=== PATIENT | female | born 1940 | race Caucasian/White ===

== ENCOUNTER 2017-04-29 17:51 | Observation (INO) | payer MEDICARE ==
[2017-04-29] VITALS (7 sets, daily range): BP systolic 109–132; BP diastolic 35–79; PULSE 57–63; RESP 16–20; O2SAT 97–100
[~2017-04-29] VITALS: Ht 154.9 cm; Wt 54.3 kg
[~2017-04-29 17:51] MED LIST: ASPI-628 PO; ATOR20TA65 PO; DIGO125T73 PO; FERR-83 PO; LISI2.5T PO; METO25TA99 PO; OXYC-302 PO; POTA20TA7 PO; SERT25TA2 PO; SPIR25TA PO; TORS20TA3 PO
--- NOTE | 2017-04-29 18:12 | ED.REPORT ---
HPI-General Illness Date of Service Apr 29, 2017 ED Provider: Santy Bautista MD Pt is a 76 year old female on warfarin with a history of hypertension, CAD, CHF , COPD, ID, coronary artery disease status post multiple stent placements, hypertension, GERD, chronic anemia and pacemaker placement in 11/2016 who presents to the ED complaining of a "pacemaker malfunction". The pt was recently admitted to [facility] and discharged yesterday. Her pacemaker began beeping soon after she returned home and has continued to do so intermittently since. Irrigation of the pacemaker has indicated that it is not transmitting, which the pt believes is due to the fact that she has been in the hospital and not close to her bedside transmitter. During her recent admission, her medication regimen was altered significantly. She was told that she had additional "heart artery blockage" but was "unable to be stented at that time due to comorbidities". In the ED the pt denies chest pain, shortness of breath, lightheadedness, syncope, nausea or vomiting. The pt has a follow up appointment arranged on 05/04/2017. She states that she is completely asymptomatic and feels fine and her only complaint is that her AICD is beeping. Nursing Notes Stated Complaint: DEFIBULATOR BEEPING Chief Complaint: General Complaint Nursing Notes Reviewed: Yes Allergies: Coded Allergies: vancomycin (Verified Allergy, Intermediate, Rash,Itching,, 01/04/15) morphine (Verified Allergy, Unknown, 04/29/17) Penicillins (Verified Adverse Reaction, Mild, pain at injection site, ) pt. has taken penicillin orally without adverse side effects Scheduled Acidophilus/Bulgaricus (Floranex) 1 Each Tablet 1 TABLET PO TID Ascorbic Acid (Vitamin C) 500 Mg Capsule.er 500 MG PO BID Aspirin (Aspir 81) 81 Mg Tablet. 81 MG PO DAILY Atorvastatin Calcium (Atorvastatin Calcium) 20 Mg Tablet 20 MG PO HS Digoxin (Digoxin) 125 Mcg Tablet 125 MCG PO DAILY Ferrous Sulfate (Ferrous Sulfate) 325 Mg Tablet 325 MG PO BID Folic Acid (Folic Acid) 1 Mg Tablet 1 MG PO DAILY Levofloxacin (Levofloxacin) 500 Mg Tablet 500 MG PO DAILY Lisinopril (Lisinopril) 10 Mg Tablet 10 MG PO DAILY Metoprolol Tartrate (Metoprolol Tartrate) 25 Mg Tablet 12.5 MG PO BID Oxymetazoline HCl (Nasal Herald Sinus) 30 Ml Herald 30 ML NS BID Sertraline HCl (Sertraline) 25 Mg Tablet 12.5 MG PO DAILY Torsemide (Torsemide) 20 Mg Tablet 20 MG PO DAILY Warfarin Sodium (Warfarin Sodium) 1 Mg Tablet 1 MG PO DAILY Zinc Sulfate (Zinc Sulfate) 220 Mg Capsule 220 MG PO DAILY Scheduled PRN Ondansetron (Ondansetron) 4 Mg Tablet 4 MG PO TID PRN PRN For Nausea Oxycodone HCl/Acetaminophen (Percocet 7.5-325 mg Tablet) 1 Each Tablet 1 EACH PO Q6 PRN PRN For Pain General Time Seen by MD: 18:08 Chief Complaint Other (Pacemaker malfunction) Hx Obtained From: Patient, Other family... Arrived By: Walk-in Sudden in Onset?: Yes Onset Occurred: 1 day ago Symptom Duration: Since onset Recent Healthcare: Recent doctor visit, Recent hospitalization Similar Sx Previous: No Past Medical History Past Medical History 1. Congestive heart failure. Repeat acute episode superimposed on chronic dysfunction, mixed systolic and diastolic in nature. 2. Mitral regurgitation as above. 3. Morbid obesity. 4. ASCVD, status post multiple stent placements. 5. Hypertension. 6. Depression. 7. GERD. 8. Asthma. 9. Chronic anemia with recent lower GI bleed though with negative endoscopic evaluation. 10. ID Reports: Asthma, COPD, Cancer, Congestive heart failure, Coronary artery disease , GERD, Hypertension Past Surgical History 5 stents Defib Reports: Hysterectomy Reports: AICD Smoking History Light Tobacco Smoker Social History Alcohol Use: "Social" Ambulatory Status Cane Review of Systems pacemaker malfunction Full Review of Systems Constitutional: Reports: Chills, Fever Respiratory: Denies: Non-productive cough, Shortness of breath Cardiovascular: Denies: Chest pain GI: Denies: Abdominal pain, Nausea, Vomiting Musculoskeletal: Denies: Back pain, Neck pain Skin: Denies Rash Neurologic: Denies: Lightheaded, Syncope Complete sys rev & neg: except as marked. Physical Exam Vital Signs Vital Signs Date Time Temp Pulse Resp B/P Pulse Ox O2 Delivery O2 Flow Rate FiO2 04/29/17 20:00 61 16 111/35 98 Room Air 04/29/17 19:30 60 16 125/42 98 Room Air 04/29/17 19:00 59 16 132/63 99 Room Air 04/29/17 18:01 36.7 57 20 130/77 100 Room Air General/Constitutional: Awake, Alert answering questions appropriately Head / Eyes: Atraumatic, Normocephalic, PERRL, EOMI ENT: Atraumatic, Airway patent, Mucous membranes moist Neck: Atraumatic, Supple, Full range of motion Respiratory / Chest: Breath sounds NL, Breath sounds = bilat, No respiratory distress AICD present on the left anterior chest wall, palpable beneath the skin with a well-healed scar Cardiovascular: Heart rate NL, Regular rhythm, Heart sounds NL, No gallop, No murmurs, No rubs Abdomen: Atraumatic, Soft, Non-tender Back: Atraumatic, Full range of motion Upper Extremities Upper Extremity / MS: Full range of motion, Neurologic intact, Vascular intact Lower Extremity / Pelvis / MS: Atraumatic, Full range of motion, No edema Skin: Color NL, No rash, Warm, Dry scattered ecchymosis on the forearms, appears to be resolving Neurologic: Oriented X3, Speech NL, No motor deficits, No sensory deficits Psychiatric: Affect NL, Mood NL Interpretation & Diagnostics Lab Results Interpretation Result Diagram: 04/29/17192704/29/171927 Test 04/29/17 19:28 04/29/17 19:29 White Blood Count 7.1th/mm3 (3.8-10.1) Red Blood Count 3.32mil/mm3 (3.90-5.20) Hemoglobin 10.1g/dL (12.0-15.6) Hematocrit 33.3% (35.0-46.0) Mean Corpuscular Volume 100fL (81-100) Mean Corpuscular Hemoglobin 30.4pg (27.0-35.0) Mean Corpuscular Hemoglobin Concent 30.3% (32.0-37.0) Red Cell Distribution Width 17.3% (12.3-15.4) Platelet Count 164bil/L (150-400) Neutrophils (%) (Auto) 61% (40-74) Lymphocytes (%) (Auto) 19% (14-46) Monocytes (%) (Auto) 17% (4-12) Eosinophils (%) (Auto) 1% (0-5) Basophils (%) (Auto) 0% (0-3) Prothrombin Time 13.6sec (8.1-12.5) Prothromb Time International Ratio 1.26ratio Sodium Level 138mEq/L (134-144) Potassium Level 4.7mEq/L (3.5-5.2) Chloride Level 101mEq/L (97-108) Carbon Dioxide Level 23mmol/L (18-29) Blood Urea Nitrogen 17mg/dL (8-27) Creatinine 0.91mg/dL (0.57-1.00) Estimat Glomerular Filtration Rate 87mL/min (>59) Glucose Level 94mg/dL (60-99) Calcium Level 8.6mg/dL (8.5-10.1) Magnesium Level 1.8mg/dL (1.6-2.6) Total Bilirubin 0.3mg/dL (0.0-1.2) Aspartate Amino Transf (AST/SGOT) 17U/L (0-50) Alanine Aminotransferase (ALT/SGPT) 10U/L (0-32) Alkaline Phosphatase 95U/L (25-165) Troponin T 0.117ug/L (0.0-0.011) Total Protein 6.3g/dL (6.4-8.4) Albumin 2.9g/dL (3.4-5.0) Hold Goins Top Tube Received (Received) ECG Interpretation ECG Interpretation: normal sinus rhythm with a rate of 57 RBBB and LPFB diffuse anterolateral T wave inversions present when compared with prior EKG dated 01/04/2015, T wave inversions present in lateral leads and more pronounced from prior Time: 18:33 Interpreted by: ED physician Re-Eval/Medical Decision Med Decision/Clinical Course Pt is a 76 year old female on warfarin with a history of hypertension, CAD, CHF , COPD, ID, coronary artery disease status post multiple stent placements, hypertension, GERD, chronic anemia and pacemaker placement in 11/2016 who presents to the ED complaining of a "pacemaker malfunction". The pt was recently admitted to [facility] and discharged yesterday. Her pacemaker began beeping soon after she returned home and has continued to do so intermittently since. Irrigation of the pacemaker has indicated that it is not transmitting, which the pt believes is due to the fact that she has been in the hospital and not close to her bedside transmitter. During her recent admission, her medication regimen was altered significantly. She was told that she had additional "heart artery blockage" but was "unable to be stented at that time due to comorbidities". In the ED the pt denies chest pain, shortness of breath, lightheadedness, syncope, nausea or vomiting. The pt has a follow up appointment arranged on 05/04/2017. She states that she is completely asymptomatic and feels fine and her only complaint is that her AICD is beeping. Upon arrival to the emergency department the patient is afebrile stable vital signs and examination as above. EKG was obtained and interpreted by myself as documented above and was notable for new lateral T-wave inversions when compared to prior study. The patient was given 324 mg of aspirin upon arrival. Obtained records from recent hospitalization at [facility]. Stress test obtained on 04/26/2017 demonstrates evidence of old inferior ID and evidence of moderate periinfarction ischemia of lateral wall. In addition, thought to have demand ischemia in light of chronic anemia. Cardiology thought that pt should be medically managed per those notes. Laboratory studies were notable as below: No leukocytosis Hematocrit 33.3 INR 1.26 CMP unremarkable Troponin 0.117 Patient was discussed with cardiology and was initially felt that she could be discharged home with plan to reset her pacemaker in clinic tomorrow. However, given new EKG changes in the setting of elevated troponin. We have opted to admit her for further workup and management. It is unclear whether she had elevated troponins during her recent hospitalization at [facility] as after reviewing many pages of records I see no troponin lab values. She was initially quite resistant to being admitted now after discussing this with her further she was amenable to coming into the hospital for serial troponin testing and further assessment by cardiology. She was transferred in stable condition. Source of Hx: Old records Time of Eval: 20:07 Patient Status: Condition improved Re-Evaluation/Progress Note: Pt rechecked, who is resting. Lab results are discussed. Time of Eval: 21:00 Patient Status: Condition improved Re-Evaluation/Progress Note: Pt rechecked, who is stable. The diagnosis and plan for admission are discussed. The pt understands and agrees with the plan. All questions are addressed at this time. She requests that her Warfarin levels not be altered. Consultation #1: Referral / Consult Name: Brenda Tiwari MD Consulted With: Cardiology Call Returned at: 19:08 Skilled Nursing Case Manager: Agrees with eval, Agrees with plan Note: Spoke with Dr. Tiwari, cardiology, regarding pt's case. Pacemaker interrogation results and pt's presentation today are reviewed. Dr. Tiwari is not concerned about T wave inversions on EKG due to pt being asymptomatic. Follow up in the clinic on Sunday is addressed. Dr. Tiwari does not recommend more workups or admission Consultation #2: Referral / Consult Name: Chao Padron MD Consulted With: Hospitalist Call Returned at: 21:08 Skilled Nursing Case Manager: Agrees with eval, Agrees with plan, Accepts admit Note: Spoke with Dr. Padron, hospitalist, regarding pt's case. Dr. Padron agrees with the evaluation and agrees to admit the pt. Consultation #3: Referral / Consult Name: Brenda Tiwari MD Consulted With: Cardiology Call Returned at: 22:05 Skilled Nursing Case Manager: Agrees with eval, Agrees with plan Note: Updated Dr. Tiwari on plan for pt. Counseled Regarding: Diagnosis, Lab results, Need for admission Discharge & Departure Primary Impression: Elevated troponin Additional Impressions: Pacemaker malfunction Encounter type: initial encounter Qualified Code: T82.111A - Breakdown ( mechanical) of cardiac pulse generator (battery), initial encounter History of ventricular tachycardia History of coronary artery disease History of ID (myocardial infarction) History of heart artery stent Disposition: ADMITTED TO HOSPITAL Discharge Condition All VS Reviewed: Yes Condition: Stable Patient Instructions: Pacemaker (DC) Additional Instructions: Thank you for seeking care at the emergency room. It is difficult for us to make definitive diagnoses in the ED but we believe that you are experiencing an alarm related to your defibrillator shocking you on March 19. I discussed this with your senior director creative services as well as the [employer] pharmaceutical specialty representative. You should go to cardiology clinic first thing on Sunday so that they can restart your pacemaker/defibrillator and stop the alarm. Our primary goal today in the ED was to evaluate you for any life-threatening conditions. Your evaluation was reassuring. You should return to the ED immediately if you develop any new/worsening symptoms, if you are shocked by your defibrillator, if you experience chest pain , shortness of breath fevers, vomiting, cough, lightheadedness, weakness or any other concerning signs or symptoms. Thank you for letting us partake in your care today. Referrals: Brenda Tiwari MD, Caroline PA-C (PCP/Family) Crit Care Except Billable Proc Time Spent: 105-134 minutes Services Performed: Patient management by me, Time spent at bedside, Reviewing test results, Reviewing imaging, Discussing patient care, Documentation in record, Time with fam/surrogate Critical Care Notes: Multiple discussions with cardiology, irrigation of pacemaker, discussion with the [employer], discussions with hospitalist. Scribe Attestation Portions of this note were transcribed by Keyshawn Luis. I, Dr. Bautista personally performed the history, physical exam and medical decision-making; I reviewed and confirmed the accuracy of the information in the transcribed note. copies to: Brenda Tiwari MD; Tammy Zazueta PA-C, Beck O MD Apr 29, 2017 18:12 KEYSHAWN LUIS Apr 29, 2017 19:18
[2017-04-29 19:34] LABS: Mean Corpuscular Hemoglobin 30.4 pg (27.0-35.0); Mean Corpuscular Volume 100 fL (81-100); NEUTROPHILS % (AUTO) 61 % (40-74); Platelet Count 164 bil/L (150-400)
[2017-04-29 19:35] LABS: BASOPHILS % (AUTO) 0 % (0-3); EOSINOPHILS % (AUTO) 1 % (0-5); MONOCYTES % (AUTO) 17 % (4-12)
[2017-04-29] MEDS ORDERED: Ondansetron 2 mg/mL 2 mL Inj IVPUSH PRN ×2 (20:00→21:15)
[2017-04-29] MEDS ORDERED: Alum-Mag Hydrox-Simeth 30 mL Suspension PO PRN ×2 (20:00→21:15)
[2017-04-29 20:08] LABS: Magnesium 1.8 mg/dL (1.6-2.6); TROPONIN T 0.117 ug/L (0.0-0.011)
[2017-04-29] MEDS ORDERED: ACID1TAB16 PO (20:15)
[2017-04-29] MEDS ORDERED: ONDA-53 PO (20:15)
[2017-04-29] MEDS ORDERED: ASCO500C6 PO (20:15)
[2017-04-29] MEDS ORDERED: FOLI1TAB18 PO (20:15)
[2017-04-29] MEDS ORDERED: LEVO500T79 PO (20:15)
[2017-04-29] MEDS ORDERED: OXYM-45 NS (20:15)
[2017-04-29 20:41] LABS: INR 1.26 ratio
--- NOTE | 2017-04-29 21:00 | NUR ---
admit: admit questions complete. med rec completed in ER. pt A&OX3. denies CP/SOB. Tele SR in the 50's. will continue to monitor pt.
[2017-04-29] MEDS ORDERED: Polyethylene Glycol (PEG) 17 Gm Powder PO PRN (21:15)
[2017-04-29] MEDS ORDERED: Senna-Docusate 8.6-50 mg Tablet PO PRN (21:15)
--- NOTE | 2017-04-29 21:22 | PCM.HPMED ---
Subjective Date of Service Apr 29, 2017 Primary Provider: Admitting Physician: Chao Padron MD Primary Care Physician: Kelle Gonzalez MD Attending Physician: Chao Padron MD Chief Complaint: Patient is a 76-year-old female with a medical history significant for hypertension, dyslipidemia, COPD, CAD status post stenting, and CHF with AICD implantation presented to the ED after pacer firing. History of Present Illness: Per patient, she reported AICD firing twice yesterday afternoon and again today while walking without any other associated symptoms including chest pain shortness of breath, lightheadedness, dizziness, syncopal episode, palpitation, or nausea and vomiting at the time. Per recommendation of PCP, patient came to the ED for further evaluation. Patient was just recently discharged from [facility] for supratherapeutic INR, severe anemia, and Afib with RVR after 8 day stay. Pt stabilized, uncertain of bleeding source however. Afib was managed with the addition of digoxin. Per ED note, patient received stress testing on 04/26/2017 while admitted at [facility] which demonstrate old anterior infarct, and recommended the patient be medically manage. On evaluation, patient denies any cardiac symptoms. In the ED, his vitals stable. EKG noted some diffuse ST inversion. Pacemaker was interrogated, however reports has yet been generated. An initial consultation with interlocking tower operator Dr. Karie I suggested the patient be followed up on Sunday. Lab troponin however came back 0.117. Patient is admitted on observation. Review of Systems: A comprehensive review of systems was conducted with the patient and found to be negative except as above in the History of Present Illness. Allergies Coded Allergies: vancomycin (Verified Allergy, Intermediate, Rash,Itching,, 01/04/15) morphine (Verified Allergy, Unknown, 04/29/17) Penicillins (Verified Adverse Reaction, Mild, pain at injection site, ) pt. has taken penicillin orally without adverse side effects Home Medications Per medical reconciliation Vitamin C 500 mg twice a day Aspirin 81 mg daily Atorvastatin 20 mg nightly Digoxin 125 MCG daily Ferrous sulfate 325 mg twice a day Folic acid 1 mg daily Lisinopril 10 mg daily Metoprolol tartrate 12.5 mg twice a day Sertraline 12.5 mg daily Torsemide 20 mg daily Warfarin 1 mg daily Zinc sulfate 220 mg daily PMH HF systolic and diastolic recent echo on 01/13/2016 with EF 30-35% Mitral valve regurgitation Hypertension Depression GERD COPD Chronic anemia with a history of GI bleeding History of myocardial infarction CAD Osteoarthritis History of cervical cancer 1974 Surgical History Dual-chamber AICD 2012 Hysterectomy Multiple drug-eluting stents Family History Father history of CVA Mother had CHF Social History Hx Alcohol Use: No Hx Substance Use: No Hx Tobacco Use: Yes (10/2010) Smoking Status: Light Tobacco Smoker Exam Vital Signs Vital Sign - Last Date Time Temp Pulse Resp B/P Pulse Ox O2 Delivery O2 Flow Rate FiO2 04/29/17 20:00 61 16 111/35 98 Room Air 04/29/17 18:01 36.7 Exam General: No acute distress, appropriately interactive HEENT: Normocephalic, atraumatic. PERRLA, EOMI, Anicteric sclerae, moist conjunctivae. Neck: No JVD, No bruits. No lymphadenopathy or thyromegaly. Cardiovascular: Regular rate and rhythm with no murmurs, rubs, or gallops appreciated Pulmonary: b/l air sound with no crackles, wheezes, or rhonchi. no use of accessory muscles. Abdomen: +Bowel sound, Soft, nontender, nondistended. Extremities: No clubbing or cyanosis, no lymphedema, no b/l lower leg edema Skin: Normal temperature, turgor, and texture; no rash. No visualized skin ulcer. Neurological: CN II-VII grossly intact, moving equally on all 4 extremities Psychiatric: Normal mood and affect. AOx3 Lab and Diagnostics Result Diagram: 04/29/17192704/29/171927 Assessment & Plan Patient is a 76-year-old female with a medical history significant for hypertension, dyslipidemia, COPD, CAD status post stenting, and CHF with AICD implantation came in for evaluation of AICD firing, admitted for elevated troponin, possible NSTEMI Elevated troponin of indeterminate significance -likely 2nd to AICD firing, diffuse T-wave inversion of lateral leads -Stress test obtained on 04/26/2017 at [facility] with old inferior DE, medically managed -Bogdan score 5, concern for NSTEMI -trending troponin -telemetry monitoring -Echo ordered, may consider canceling if trops plateau Paroxysmal Afib -Cont home warfarin and digoxin 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 -EF 30-35% based on echo 01/06/2015, dual-chamber AICD -Cont leeanne-I and beta-clay, patient not on spironolactone based on records -Continue torsemide 20 mg and digoxin -Digoxin level ordered CAD -Continue home Atorvastatin, aspirin COPD -DuoNeb when necessary Hypertension -Continue lisinopril, metoprolol, Normocytic anemia -Continue home for sulfate and folic acid Depression -Continue sertraline CODE STATUS full code DVT prophylaxis warfarin Patient Status: Patient is admitted under observation status with expected length of stay LESS than 2 midnights due to severity of presenting symptoms, risk of adverse event, and complexity of treatment plan. GI Prophylaxis: Not indicated VTE Prophylaxis: Theraputic Anticoag with Warfarin Resuscitation Status: CPR: Attempt Resuscitation Attending Statement The patient was seen and examined together with Dr. Patrick on 04/29 and I agree with the history, exam and plan as outlined in the note above. Rafiq Patrick DO Apr 29, 2017 21:22 Chao Padron MD Apr 30, 2017 01:42
[2017-04-29] MEDS ORDERED: OXYM30SP19 NS (21:25)
[2017-04-29] MEDS ORDERED: LISI10TA PO (21:25)
[2017-04-29] MEDS ORDERED: ZINC220C9 PO (21:25)
[2017-04-29] MEDS ORDERED: METO25TA6 PO (21:25)
[2017-04-29] MEDS ORDERED: WARF1TAB6 PO (21:25)
[2017-04-29] MEDS ORDERED: TORS20TA3 PO (21:25)
[2017-04-29] MEDS ORDERED: SERT25TA6 PO (21:25)
[2017-04-29] MEDS ORDERED: Albuterol-Ipratropium 3 mL Inhalation Solution NEB PRN (22:00)
[2017-04-29] MEDS: 0.9% Sodium Chloride 1,000 ML IV SCH (22:09)
[2017-04-30] VITALS (9 sets, daily range): BP systolic 103–145; BP diastolic 56–86; PULSE 57–63; RESP 16–20; O2SAT 95–99
[2017-04-30] MEDS: Sodium Chloride LOK Flush 10 mL Syringe IVFLUSH SCH ×4 (00:30→20:13)
[2017-04-30 02:29] LABS: APPEARANCE,URINE CLEAR (CLEAR,HAZY); COLOR,URINE YELLOW (YELLOW); OCCULT BLOOD,URINE NEGATIVE (NEGATIVE); PH,URINE 5.5 (5.0-8.0); UROBILINOGEN,URINE NORMAL (NORMAL)
[2017-04-30] MEDS: oxyCODONE-Acetamin 5-325 mg Tablet PO PRN ×3 (02:49→20:54)
[2017-04-30 06:11] LABS: INR 1.23 ratio
[2017-04-30] MEDS: 0.9% Sodium Chloride 1,000 ML IV SCH ×2 (06:26→19:12)
[2017-04-30 06:32] LABS: TROPONIN T 0.092 ug/L (0.0-0.011)
[2017-04-30] MEDS ORDERED: ASPI-973 PO (10:21)
[2017-04-30] MEDS ORDERED: OXYC-465 PO (10:22)
[2017-04-30 10:49] LABS: Creatine Kinase 27 U/L (21-215)
--- NOTE | 2017-04-30 10:59 | PCM.PNMED ---
Subjective Date of Service Apr 30, 2017 Subjective pt remained asymptomatic, HD stable, troponin trending down awaits card eval, possible cath per requested medical records from [facility] Exam Vital Signs Vital Sign - Last Date Time Temp Pulse Resp B/P Pulse Ox O2 Delivery O2 Flow Rate FiO2 04/30/17 10:15 58 04/30/17 09:51 36.7 20 139/56 99 Room Air Intake and Output 04/29/17 04/29/17 04/30/17 Cumulative From/Thru 15:00 23:00 07:00 04/29/17 18:01 - 04/30/17 06:26 Intake Total 700 ml 700 ml Balance 700 ml 700 ml IV Total 700 ml 700 ml Exam NAD, comfortably laying down on bed, no JVD, MMM RRR nls 1s2 no mrg CTAB, no w,c warm, no edema IVs and Medications Medications Reviewed: Medications were reviewed in detail Lab and Diagnostics Result Diagram: 04/29/17 1928 04/30/17 0510 Assessment & Plan Patient is a 76-year-old female with a medical history significant for hypertension, dyslipidemia, COPD, CAD status post stenting, and CHF with AICD implantation came in for evaluation of AICD firing, admitted for elevated troponin, possible NSTEMI acute, active Elevated troponin of indeterminate significance, POA likely 2nd to AICD firing, diffuse T-wave inversion of lateral leads on EKG. 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 -pt seemed euvolemic -EF 30-35% based on echo 01/06/2015, dual-chamber AICD -Cont leeanne-I and beta-clay, patient not on spironolactone based on records -Continue torsemide 20 mg and digoxin -Digoxin level ordered CAD -Continue home Atorvastatin, aspirin COPD -DuoNeb when necessary Hypertension -Continue lisinopril, metoprolol, Normocytic anemia -Continue home for sulfate and folic acid Depression -Continue sertraline CODE STATUS full code DVT prophylaxis warfarin Patient Status: likely 1-2days based on cardiac eval GI Prophylaxis: Not indicated VTE Prophylaxis: Theraputic Anticoag with Warfarin Resuscitation Status: CPR: Attempt Resuscitation Time spent 35min Uma Truong MD Apr 30, 2017 10:59
[2017-04-30 11:01] LABS: Creatine Kinase 30 U/L (21-215)
--- NOTE | 2017-04-30 11:13 | NUR ---
Case Management: [place] and Medicare Part D pamphlet delivered and explained to patient. Signed original placed in chart. Copy left at bedside. Celine Redd RN
--- NOTE | 2017-04-30 11:15 | PCM.PHAPRO ---
Progress Warfarin Management by Pharmacy: -Indication: paroxysmal atrial fibrillation -Home Dose: warfarin 1mg po daily -Inr Goal: 2-3 -Drug Interactions: asa 81mg, sertraline 12.5mg (mild-platelets) -Disease Interactions: Chf,copd -Concurrent Anticoagulation: none -Coagulation Trends: NTV SLF Apr 30-Apr 1.26 1.23 -0.03 1 1 -Plan: pt is insistent on keeping her home dose of warfarin 1mg due to a supratherapeutic inr several days ago (dose had been higher) when admitted to [facility]. She received phytonadione due to a supratherapeutic level ~ 5 Inr remains subtherapeutic and will give her home dose of warfarin 1mg this evening. Agnes Starr [facility] Apr 30, 2017 11:15
--- NOTE | 2017-04-30 11:50 | DRSVH ---
[facility] [address] [place] [address] Echocardiogram Report Name: OMARI DERAS RStudy Date: 04/30/2017 Height: 61 in Hospital Exam Location: [facility] Weight: 13 0 lb Gender: Female BSA: 1.6 m2 : 1940 Age: 76 yrs BP: 116/60 mmHg Reason For Study: CHEST PAIN Ordering Physician: SAVANNAH BANUELOS By: Perla Da Silva [facility] Interpret[facility] Summary Patient unable to lay flat on back. 1) Severely dilated left ventricle with severely reduced function (EF 25- 30%). 2) Akinesis of the inferior and inferolateral salomon. Mild hypokinesis of the anterolateral, anteiror, and septal salomon. 3) Mildly dilated right ventricle with borderline reduced function. 4) Severe left atrial enlargement and moderate right atrial enlargement present. 5) Severe mitral regurgitation due to fixed posterior leaflet from ischemic cardiomyopathy. 6) Pulmonary hypertension present, systolic pulmonary pressures estimated at 62mmHg. 7) Compared to the Echo 01/06/2015, pulmonary hypertension is worse on today's study. Procedure: A two-dimensional transthoracic echocardiogram with color flow and Doppler was performed. The study quality was technically adequate. Comparison is made with the echocardiogram of 01/06/2015. The patient was in normal sinus rhythm during the exam. Left Ventricle: The left ventricle is markedly dilated. There is moderate asymmetric left ventricular hypertrophy. Left ventricular systolic function is severely reduced. The ejection fraction is estimated to be 25-30%. Thin and bright LV wall segment suggests a myocardial infarction. Akinesis of the inferior and inferolateral salomon. Mild hypokinesis of the anterolateral, anteiror, and septal salomon. Assessment of diastolic parameters suggests a pseudonormalization pattern, consistent with elevated filling pressures. Right Ventricle: The right ventricle is mildly dilated. There is a pacemaker lead in the right ventricle. Right ventricular systolic function is borderline reduced. Atria: The left atrium is severely dilated. The left atrium has significantly increased in size since the prior echo exam. The right atrium is moderately dilated. There is no Doppler evidence for an interatrial shunt. Mitral Valve: The mitral valve leaflets are mildly calcified. The mitral valve leaflets appear to open well. There is severe mitral regurgitation. Aortic Valve: The aortic valve is trileaflet. The aortic valve is slightly calcified. The aortic valve opens well. There is no aortic valve stenosis. No aortic regurgitation is present. Tricuspid Valve: The tricuspid valve is normal. There is mild tricuspid regurgitation. The right ventricular systolic pressure is estimated at least 62 mmHg assuming a right atrial pressure of 3 mm Hg. Compared to the prior echo exam, there has been an increase in the severity of pulmonary hypertension. Pulmonic Valve: The pulmonic valve leaflets are thin and pliable; valve motion is normal. There is trace pulmonic regurgitation. Great Vessels: The aortic root is normal size. The ascending aorta is normal in size. The aortic arch could not be visualized. The pulmonary is not well visualized. The IVC is of normal diameter and collapses greater than 50% with a sniff. This suggests a low right atrial pressure of 3 mm Hg. Pericardium/ Pleura There is no pericardial effusion. There is no pleural effusion. MMode/2D Measurements & Calculations LVIDd: 7.1 cm RA long axis LVOT diam LVIDs: 6.2 cm LA A2 area: 33.8 cm FS: 12.3 % LA A4 area: 39.7 cm RA area AoV Opening EPSS: 1.8 cm LA length (vol): 6.4 cm IVSd: 1.4 cm LA vol: 178.0 ml : 20.8 cm Ao root diam LVPWd: 0.68 cm LA vol index RA vol : 73.4 ml asc Aorta : 113.2 ml/m2 RA Diam: 3.0 cm IVC diam: 2.0 cm : 46.7 mm2 LV bailey. diameter/BSA LV sys. diameter/BSA RVD1 (basal) RVD2 (mid) (cm/m^2): 4.5 (cm/m^2): 3.9 : 3.6 cm Doppler Measurements & Calculations Ao V2 max MV E max jerald MV E/A: 1.5 TR max jerald : 151.6 cm/sec : 121.9 cm/sec Med Peak E' Jerald : 384.9 cm/sec Ao max PG MV A max jerald TR max PG : 9.2 mmHg : 80.5 cm/sec E/E' med: 47.0 : 59.3 mmHg Ao mean PG MV P1/2t: 44.6 msec Lat Peak E' Jerald PA V2 max : 98.5 cm/sec LVOT Max Jerald E/E' lat: 17.7 PA mean PG : 104.1 cm/sec E/e' average BJ(I,D): 2.6 cm PA Accel Time sev ratio : 0.12 sec MV dec time MV P1/2t max jerald Ao V2 mean LV V1 max PG : 0.15 sec : 82.0 cm/sec Ao V2 VTI: 28.7 cmLV V1 VTI MVA(P1/2t): 4.9 cm2 : 19.5 cm BJ(V,D): 2.7 cm2 PA V2 mean BJ indexed to BSA : 69.6 cm/sec (cm^2/m^2): 1.7 Reading Physician:11:49 AM
--- NOTE | 2017-04-30 15:22 | NUR ---
Social Work-initial assessment: Data:See initial assessment. Pt is a 76 y/o female who was admitted on 04/29/17 for elevated trop per H&P. Pt's insurance [facility] and PCP is Kelle Gonzalez MD. EMR reviewed. SW met with pt at bedside, SW Role explained. Pt is alert and oriented x3. Pt resides at home with her daughter in [place] where she remains independent with ADls. Pt does not drive and uses a fww at baseline. Pt is currently open with [facility] and has been to [facility] in the past. Pt has no intermediate accountant care insurance or VA benefits. SW discussed DPOA/ advanced directive, pt confirms she has completed this, SW encouraged a copy to be brought in. No concerns around pt's capacity for self care. order received for resume HH. JUDITH spoke with [facility],[phone], informed them of pt's admission. [facility]ell confirms pt is open with RN,PT, and OT. SW will need to notify [facility] [phone] at discharge and fax resume HH orders to them. Pt confirms her daughter will provide transport home. SW provided pt with discharge planning checklist and encouraged her to call with any questions,phone number provided on white board in room. JUDITH will continue to follow. Assessment:Pt who would benefit from HH. Plan:Pt to discharge home when medically stable via POV. JUDITH will need to notify [facility] [phone] at discharge and fax resume HH orders to them.JUDITH will continue to follow. RELL Grijalva Addendum: 04/30/17 at 1531 by MARY HOGUE Amended: Links added.
--- NOTE | 2017-04-30 16:43 | PCM.HPCARD ---
Subjective Date of service Apr 30, 2017 Primary Provider: Admitting Physician: Chao Padron MD Primary Care Physician: Kelle Gonzalez MD Attending Physician: Uma Truong MD Chief Complaint: Chief Complaint: AICD firing, elevated troponin History of Present Illness: 76yoF hx systolic and diastolic CHF with AICD, MR, HTN, CAD s/p stent and history of DE who presents with concerns that her AICD had fired twice prior to admission on 04/29/17. She states her AICD fired twice the day before admission and the afternoon of admission while she was walking around. She denies any symptoms prior to or at the time of the AICD firing and denies symptoms throughout her admission, including denying chest pain, shortness of breath, palpitations, edema, lightheadedness, syncope. She states she heard her AICD beeping but did not feel anything. On admission, EKG noted some diffuse ST inversion. Pacemaker was interrogated, however reports has yet been generated. She has a [employer] AICD. She was recently discharged from [facility] for supratherapeutic INR, severe anemia, and afib with RVR after 8 day stay. A nuclear stress test was done while at [facility] on 04/25/17 which was read as a reversible lateral wall perfusion defect, of moderate extent and severity, as well as a fixed inferior wall defect suggestive of past DE and dilated LV size with EF 25%. Today she continues to have no complaints, and telemetry overnight showed sinus bradycardia in the 50s-60s with no other events. PROBLEM LIST: # Systolic and diastolic CHF s/p AICD with echo 04/30/17 showing EF 25-30% # Hypertension # CAD with history of stent and DE # Chronic anemia with history of GI bleed # Atrial fibrillation on digoxin and warfarin # Severe mitral regurgitation Review of Systems Review of Systems Comprehensive review of systems conducted and was negative except for the pertinent positives listed above. PMH Past Medical History HF systolic and diastolic recent echo on 04/30/17 with EF 25-30% with severe LV dilation Mitral valve regurgitation Hypertension Depression GERD COPD Chronic anemia with a history of GI bleeding History of myocardial infarction CAD Osteoarthritis History of cervical cancer 1974 Surgical History Dual-chamber AICD 2011 Hysterectomy Multiple drug-eluting stents Surgical History Dual-chamber AICD 2011 Hysterectomy Multiple drug-eluting stents Allergies: Coded Allergies: vancomycin (Verified Allergy, Intermediate, Rash,Itching,, 01/04/15) morphine (Verified Allergy, Unknown, 04/29/17) Penicillins (Verified Adverse Reaction, Mild, pain at injection site, ) pt. has taken penicillin orally without adverse side effects Family History Family History Father history of CVA Mother had CHF Social History Hx Alcohol Use: NoHx Substance Use: NoHx Tobacco Use: Yes (10/2010) Smoking Status: Light Tobacco Smoker Exam Vital Signs Vital Sign - Last Date Time Temp Pulse Resp B/P Pulse Ox O2 Delivery O2 Flow Rate FiO2 04/30/17 14:21 36.7 57 20 145/82 98 Room Air Intake and Output 04/29/17 04/29/17 04/30/17 Cumulative From/Thru 15:00 23:00 07:00 04/29/17 18:01 - 04/30/17 06:26 Intake Total 700 ml 700 ml Balance 700 ml 700 ml IV Total 700 ml 700 ml Objective General appearance: No apparent distress, well-nourished, pleasant, cooperative HEET: Normocephalic atraumatic, no scleral icterus, tongue midline, mucous membranes moist Neck: supple Cardiovascular: RRR, soft S1 and S2, + holosystolic murmur, no rubs/gallops, PMI nondisplaced, no JVD, no peripheral edema Chest: AICD present on the left anterior chest wall, palpable beneath the skin with a well-healed scar Respiratory: Good aeration, clear to auscultation bilaterally Abdomen: Soft, nontender, nondistended, + bowel sounds Neuro: Alert, no facial droop, tongue midline, able to walk down the hallway without any difficulty Psych: Appropriate affect Skin: Scattered ecchymosis on the forearms, appears to be resolving Lab and Diagnostics Result Diagram: 04/29/17 1928 04/30/17 0510 Additional Diagnostics: Echocardiogram (04/30/17): 1) Severely dilated left ventricle with severely reduced function (EF 25-30%). 2) Akinesis of the inferior and inferolateral salomon. Mild hypokinesis of the manterolateral, anteiror, and septal salomon. 3) Mildly dilated right ventricle with borderline reduced function. 4) Severe left atrial enlargement and moderate right atrial enlargement present. 5) Severe mitral regurgitation due to fixed posterior leaflet from ischemic cardiomyopathy. 6) Pulmonary hypertension present, systolic pulmonary pressures estimated at 62mmHg. 7) Compared to the Echo 01/06/2015, pulmonary hypertension is worse on today's study. Assessment & Plan Assessment # Elevated troponin, acute: Pt presents asymptomatic with elevated troponin ( 0.117 --> 0.101 --> 0.092). On interrogation of her AICD, it fired once few weeks ago. Her CK and CKMB were normal. Her troponin was likely elevated secondary to recent illness, rather than acute cardiac process, as she was hospitalized for over a month for GI bleed. CK and CK-MB are normal. She has no symptoms of acute coronary syndrome. She does have significant ischemia in the lateral wall on the recent lexiscan at [facility]. Plan: - Recovery from her recent illness - Expedited f/u with Dr. Ordaz for consideration of PCI of the LCx based on nuclear stress report # Pacemaker malfunction/noise: We are uncertain why her AICD was beeping, as the report did not reveal any recent activity, so we will schedule her for an close follow up at the device clinic. - Have device checked and reconfigured at device clinic within next 2 days. # Systolic and diastolic CHF s/p AICD with echo 04/30/17 showing EF 25-30%: Pt currently on LILIYA-i and beta clay, and torsemide. - Continue lisinopril 10 mg daily - Continue metoprolol tartrate 12.5 mg BID - Continue torsemide 20 mg daily # Hypertension: Somewhat hypertensive at 145/82. - Continue lisinopril and torsemide. May require increased dose of lisinopril if she remains hypertensive. # Chronic anemia with history of GI bleed: Hb currently 10.1. - Monitor H&H # Atrial fibrillation on digoxin and warfarin: With recent history of supratherapeutic INR and acute anemia. Hb appears stable for now. - Monitor INR and H&H - Continue digoxin 125 mcg daily - Continue warfarin VTE Prophylaxis: Theraputic Anticoag with Warfarin Resuscitation Status: CPR: Attempt Resuscitation Attending Statement ATTENDING ADDENDUM: I saw, examined, and evaluated the patient with Dr. Michael Wren on 04/30/2017 and agree with the note as above along with my edits. Michael Wren Apr 30, 2017 16:27 Clarence Geronimo MD Apr 30, 2017 16:48
--- NOTE | 2017-04-30 17:43 | NUR ---
sacral wound patient has large deep wound on sacrum (see wound car note for details). Wound care placed wound vac to sacrum this afternoon. staffing coordinator has been turning patient 12hrs, keeping her off sacrum throughout day. pillows used to alleviate pressure points. continue to encourage patient to stay off sacrum with frequent position changes. continue with current plan of care.
--- NOTE | 2017-04-30 17:44 | NUR ---
Wound Note 76 female admitted for cardiac issues,seen in consult for a sacral pressure injury present on admission that has been treated with NPWT. At this point it appears to be a stage 3 however it is more likely to be a healing stage 4 as I can feel the sacrum beneath the layer of granulation tissue. The wound measures 9.5 cm x6.5 cm and is undermined at the left border from 12:oo to 6:00. Wound is 95% granular and extends very close to the rectum, perhaps a 3 cm bridge of intact skin between the wound edge and the rectum. This wound is clean and uninfected aas far as I can tell. NPWT was applied to the wound today, 125 mmhg continuous therapy with black foam, a good seal was attained. Asked family members to bring home unit in so that it can be placed prior to discharge and HH can be resumed by providemne . Patient tolerated treatment well and was palced in left sidelying.
[2017-05-01 01:56] VITALS: BP 136/65; PULSE 60; RESP 16; O2SAT 96
--- NOTE | 2017-05-01 05:47 | NUR ---
Pain 8/10 with Q6 pain meds finally under control after 21:00 admin patient declined 03:00 available Percocet.
[2017-05-01] MEDS: oxyCODONE-Acetamin 5-325 mg Tablet PO PRN ×2 (06:06→15:12)
[2017-05-01 06:10] VITALS: BP 134/43; PULSE 59; RESP 16; O2SAT 95
[2017-05-01 07:00] LABS: INR 1.17 ratio
[2017-05-01 07:49] VITALS: PULSE 55; RESP 16; O2SAT 97
[2017-05-01] MEDS: Sodium Chloride LOK Flush 10 mL Syringe IVFLUSH SCH (08:30)
[2017-05-01 09:54] VITALS: BP 114/66; PULSE 56; RESP 18; O2SAT 97
--- NOTE | 2017-05-01 10:47 | NUR ---
Comm. with dtr Pt's dtr, January ([phone]) called requesting update. Pt gave verbal permission to release any requested information to dtr. Update provided, dtr questioning if she should bring in pacemaker recorder and decision made to bring it in event it is needed.
[2017-05-01] MEDS: 0.9% Sodium Chloride 1,000 ML IV SCH (10:49)
[2017-05-01 12:50] VITALS: PULSE 53
--- NOTE | 2017-05-01 13:20 | PCM.DIMED ---
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 You were closely monitored in the hospital, didn't show any active signs of heart attack. Your device showed that you didn' t have shock. Your HH will be resumed on discharge when you return home. Given positive stress test result from [facility], You were recommended to follow up with in one week, likely needs to repeat Cardiac catheterization test. Follow-up Provider: Jason Ordaz MD Follow-up with PCP in: 1 week Uma Truong MD May 01, 2017 13:20
[2017-05-01 13:40] VITALS: BP 124/55; PULSE 54; RESP 18; O2SAT 97
--- NOTE | 2017-05-01 13:51 | NUR ---
Inpatient Wound Nurse YADIRA completed conversation completed with patient's daughter January who stated that home NPWT unit was packed and ready to be brought in to hospital, she understands need for unit to be in hospital before patient can be discharged home with it. YADIRA RN will change units at discharge.
--- NOTE | 2017-05-01 14:35 | NUR ---
Social Work-discharge: Data:EMR reviewed. Pt is on day 2 of hospitalization for elevated trop per H&P. Pt is medically stable for discharge. JUDITH called [facility] and informed them of discharge and faxed in resume HH orders for RN,PT, and OT to [phone]. JUDITH spoke with bedside RN who states pt has home wound vac and daughter is bringing this in. Once this is here, RN will put this on pt and she will return home. Pt had wound vac prior to admission. Pt updated and agreeable to plan. Daughter to provide transport home. All updated and agreeable to plan. Assessment:Pt who would benefit from HH. Plan:Pt to discharge home today via POV. Resume HH orders have been faxed into [facility]:RN,PT, and OT, [place] aware of the discharge. Pt to resume home wound vac. All updated and agreeable to plan. RELL Grijalva
--- NOTE | 2017-05-01 15:43 | NUR ---
Inpatient Wound Nurse Patient's NPWT unit switched to home unit, 125 low continuous, suction obtained immediately, no challenges. Her daughter is familiar with set-up and operation, had no questions. CS was called and alerted that hospital unit was left in dirty utility room and patient will be seen by home health.
--- NOTE | 2017-05-01 15:50 | NUR ---
DISCHARGE Pt dc'd home at 1540, off unit in w/c accompanied by dtr and [employer]SEMBLER. Vital signs stable, A&Ox4, denies any pain and in no apparent distress. IV dc'd intact, all belongings returned. All instructions for diet, activity, medications, prescriptions and follow up reviewed with pt who reports understanding. Wound vac changed prior to dc by inpatient wound RN.
--- NOTE | 2017-05-01 17:31 | PCM.DC.MED ---
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 Geronimo Procedures Cardiac Echo Impression Echocardiogram Report Name: OMARI DERAS RStudy Date: 04/30/2017 Height: 61 in Hospital Exam Location: [facility] Weight: 13 0 lb Gender: Female BSA: 1.6 m2 : 1940 Age: 76 yrs BP: 116/60 mmHg Reason For Study: CHEST PAIN Ordering Physician: SAVANNAH BANUELOS By: Perla Da Silva Referring Physician: Mario Vaughn Interpretation Summary Patient unable to lay flat on back. 1) Severely dilated left ventricle with severely reduced function (EF 25- 30%). 2) Akinesis of the inferior and inferolateral salomon. Mild hypokinesis of the anterolateral, anteiror, and septal salomon. 3) Mildly dilated right ventricle with borderline reduced function. 4) Severe left atrial enlargement and moderate right atrial enlargement present. 5) Severe mitral regurgitation due to fixed posterior leaflet from ischemic cardiomyopathy. 6) Pulmonary hypertension present, systolic pulmonary pressures estimated at 62mmHg. 7) Compared to the Echo 01/06/2015, pulmonary hypertension is worse on today's study. Brief History History of present illness obtained by on 04/29 Per patient, she reported AICD firing twice yesterday afternoon and again today while walking without any other associated symptoms including chest pain shortness of breath, lightheadedness, dizziness, syncopal episode, palpitation, or nausea and vomiting at the time. Per recommendation of PCP, patient came to the ED for further evaluation. Patient was just recently discharged from [facility] for supratherapeutic INR, severe anemia, and Afib with RVR after 8 day stay. Pt stabilized, uncertain of bleeding source however. Afib was managed with the addition of digoxin. 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 On evaluation, patient denies any cardiac symptoms. In the ED, his vitals stable. EKG noted some diffuse ST inversion. Pacemaker was interrogated, however reports has yet been generated. An initial consultation with structural steel equipment erector Dr. Tiwari, I suggested the patient be followed up on Sunday. Lab troponin however came back 0.117. Patient is admitted on observation. Hospital Course Patient is a 76-year-old female with a medical history significant for hypertension, dyslipidemia, COPD, CAD status post stenting, and CHF with AICD implantation came in for evaluation of AICD firing, admitted for elevated troponin, possible NSTEMI Brief hospital course Patient was admitted to the hospital given her elevated troponins in the setting of possible ICD discharge from . EKG showed diffuse STD, TTE showed severely reduced EF25-30%, Akinesis of the inferior and inferolateral salomon. Mild hypokinesis of the anterolateral, anteiror, and septal salomon. Troponins trended and came down without any episode of chest pain or episode on telemetry. Patient's ICD was checked just prior to D/C, verbal report from [employer] didn't show any ICD discharge for past few days but was fired 11days ago due to ventricular tachycardia, which likely related to hospitalization in [facility]. Given patient's recent complicated hospital course at [facility], pt had positive stress test, significant ischemia in the lateral wall on the recent lexiscan, pt was recommended follow up with for PCI for LCx sooner than later as per . Given ICD findings, pt will also follow up with . Patient otherwise remained asymptomatic, also euvolemic on exam, rate was controlled well with newly added digoxin from [facility]. pt deemed safe for d/c to home with . Since pt had supratherpeutic INR with persistent epistaxis in recent admission, pt was afraid to increased Coumadin dosage, but agreed to continue 1mg and try 2.5mg every 2-3days and recheck INR later. INR on d/c was 1.17. acute, active Elevated troponin of indeterminate significance, POA likely 2nd to AICD firing, diffuse T-wave inversion of lateral leads on EKG. 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 -pt seemed euvolemic -EF 30-35% based on echo 01/06/2015, dual-chamber AICD -Cont leeanne-I and beta-clay, patient not on spironolactone based on records -Continue torsemide 20 mg and digoxin -Digoxin level ordered CAD -Continue home Atorvastatin, aspirin COPD -DuoNeb when necessary Hypertension -Continue lisinopril, metoprolol, Normocytic anemia -Continue home for sulfate and folic acid Depression -Continue sertraline CODE STATUS full code DVT prophylaxis warfarin Patient Status: likely 1-2days based on cardiac eval Exam Vital Signs (Last) Date Time Temp Pulse Resp B/P Pulse Ox O2 Delivery O2 Flow Rate FiO2 05/01/17 13:40 36.8 54 18 124/55 97 Room Air Exam Patient was examined on the day of discharge Test 04/29/17 19:28 04/29/17 19:29 04/29/17 23:06 04/30/17 02:14 White Blood Count 7.1th/mm3 (3.8-10.1) Red Blood Count 3.32mil/mm3 (3.90-5.20) Hemoglobin 10.1g/dL (12.0-15.6) Hematocrit 33.3% (35.0-46.0) Mean Corpuscular Volume 100fL (81-100) Mean Corpuscular Hemoglobin 30.4pg (27.0-35.0) Mean Corpuscular Hemoglobin Concent 30.3% (32.0-37.0) Red Cell Distribution Width 17.3% (12.3-15.4) Platelet Count 164bil/L (150-400) Neutrophils (%) (Auto) 61% (40-74) Lymphocytes (%) (Auto) 19% (14-46) Monocytes (%) (Auto) 17% (4-12) Eosinophils (%) (Auto) 1% (0-5) Basophils (%) (Auto) 0% (0-3) Hemoglobin A1c 5.0% (4.8-5.6) Magnesium Level 1.8mg/dL (1.6-2.6) Total Bilirubin 0.3mg/dL (0.0-1.2) Aspartate Amino Transf (AST/SGOT) 17U/L (0-50) Alanine Aminotransferase (ALT/SGPT) 10U/L (0-32) Alkaline Phosphatase 95U/L (25-165) Total Protein 6.3g/dL (6.4-8.4) Albumin 2.9g/dL (3.4-5.0) Hold Goins Top Tube Received (Received) Digoxin Level 1.1nG/mL (0.9-2.0) Urine Color Yellow (YELLOW) Urine Appearance Clear (CLEAR,HAZY) Urine pH 5.5 (5.0-8.0) Urine Specific [place] 1.020 (1.003-1.035) Urine Protein Negativemg/dL (NEG,TRACE) Urine Glucose (UA) Negativemg/dL (NEGATIVE) Urine Ketones Negativemg/dL (NEGATIVE) Urine Occult Blood Negative (NEGATIVE) Urine Nitrite Negative (NEGATIVE) Urine Bilirubin Negative (NEGATIVE) Urine Urobilinogen Normalmg/dL (NORMAL) Urine Leukocyte Esterase Negative (NEGATIVE) Urine RBC 0-2/hpf (0-2) Urine WBC 0-5/hpf (0-5) Urine Epithelial Cells Few/hpf (NONE-MOD) Urine Crystals None seen (NONE SEEN) Urine Bacteria Few/hpf (NONE-FEW) Urine Hyaline Casts >20/lpf (NONE) Urine Granular Casts None seen (NONE SEEN) Urine Waxy Casts None seen (NONE SEEN) Urine Red Blood Cell Casts None seen (NONE SEEN) Urine White Blood Cell Casts None seen (NONE SEEN) Urine Mucus None seen (None Seen) Urine Trichomonas None seen (NONE SEEN) Urine Yeast None (NONE SEEN) Urinalysis Comment None Urine Culture Reflexed Not indicated Test 04/30/17 05:10 05/01/17 05:58 Sodium Level 140mEq/L (134-144) Potassium Level 4.6mEq/L (3.5-5.2) Chloride Level 105mEq/L (97-108) Carbon Dioxide Level 20mmol/L (18-29) Blood Urea Nitrogen 16mg/dL (8-27) Creatinine 0.86mg/dL (0.57-1.00) Estimat Glomerular Filtration Rate 92mL/min (>59) Glucose Level 102mg/dL (60-99) Calcium Level 7.9mg/dL (8.5-10.1) Total Creatine Kinase 27U/L (21-215) Creatine Kinase MB 4.0ng/mL (0.0-5.3) Creatine Kinase MB % % (0.0-5.0) Troponin T 0.092ug/L (0.0-0.011) Prothrombin Time 12.6sec (8.1-12.5) Prothromb Time International Ratio 1.17ratio Discharge Medications Discharge Medications Acidophilus/Bulgaricus (Floranex) 1 Each Tablet 1 TABLET PO TID (Reported) Ascorbic Acid (Vitamin C) 500 Mg Capsule.er 500 MG PO BID (Reported) Aspirin (Aspirin) 81 Mg Tablet 81 MG PO DAILY (Reported) Atorvastatin Calcium (Atorvastatin Calcium) 20 Mg Tablet 20 MG PO HS (Reported) Digoxin (Digoxin) 125 Mcg Tablet 125 MCG PO DAILY (Reported) Ferrous Sulfate (Ferrous Sulfate) 325 Mg Tablet 325 MG PO BIDWM (Reported) Folic Acid (Folic Acid) 1 Mg Tablet 1 MG PO DAILY (Reported) Lisinopril (Lisinopril) 10 Mg Tablet 10 MG PO DAILY (Reported) Metoprolol Tartrate (Metoprolol Tartrate) 25 Mg Tablet 12.5 MG PO BID (Reported ) Oxymetazoline HCl (Nasal Drewsey Sinus) 30 Ml Drewsey 1 SPRAY NS BID (Reported) Sertraline HCl (Sertraline) 25 Mg Tablet 12.5 MG PO DAILY (Reported) Torsemide (Torsemide) 20 Mg Tablet 20 MG PO DAILY (Reported) Warfarin Sodium (Warfarin Sodium) 1 Mg Tablet 1 MG PO QPM (Reported) Zinc Sulfate (Zinc Sulfate) 220 Mg Capsule 220 MG PO DAILY (Reported) As needed Ondansetron (Ondansetron) 4 Mg Tablet 4 MG PO TID PRN PRN For Nausea (Reported) oxyCODONE-Acetaminophen 7.5-325 mg (oxyCODONE-Acetaminophen 7.5-325 mg) 1 Each Tablet 1 TAB PO Q6H PRN PRN For Pain (Reported) Additional med instructions Please note that you can take 2.5mg every 3days and 1mg of Coumadin rest of the days and recheck protime level, Followup Plan Disposition: home with HH Discharge Diet: Low fat, Low Sodium, Heart Healthy Discharge Activity: No restrictions Patient Instructions You were hospitalized given concern for ongoing heart attack and possible shock delivered from your defibrillator. You were closely monitored in the hospital, didn't show any active signs of heart attack. Your device showed that you didn' t have shock. Your HH will be resumed on discharge when you return home. Given positive stress test result from [facility], You were recommended to follow up with in one week, likely needs to repeat Cardiac catheterization test. Follow-up Provider: Jason Ordaz MD Follow-up with PCP in: 1 week Time spent 65min Uma Truong MD May 01, 2017 17:09
== END 2017-05-01 15:42 | disposition home or self-care (01) ==
LOC: SED 17:51 → INTOOBSV 20:53 → MPC 20:53
PROVIDERS: ADMIT Hospitalist; ATTEND Internal Medicine
DX: R79.89 Other specified abnormal findings of blood chemistry (principal); I25.10 Atherosclerotic heart disease of native coronary artery without angina pectoris; I48.0 Paroxysmal atrial fibrillation; I50.42 Chronic combined systolic (congestive) and diastolic (congestive) heart failure; I11.0 Hypertensive heart disease with heart failure; J44.9 Chronic obstructive pulmonary disease, unspecified; K21.9 Gastro-esophageal reflux disease without esophagitis; D64.9 Anemia, unspecified; I25.2 Old myocardial infarction; F32.9 Major depressive disorder, single episode, unspecified; I34.8 Other nonrheumatic mitral valve disorders; E66.01 Morbid (severe) obesity due to excess calories; F17.210 Nicotine dependence, cigarettes, uncomplicated; Z95.810 Presence of automatic (implantable) cardiac defibrillator; Z95.5 Presence of coronary angioplasty implant and graft; Z79.01 Long term (current) use of anticoagulants; Z79.82 Long term (current) use of aspirin
CPT/HCPCS: 36415; 80048; 80053; 80162; 81000; 82550; 82553; 83036; 83735; 84484; 85025; 85610; 93005; 94799; 97602; 97606; 99291; 99292; C8929; G0378; J7030